=== PATIENT | male | born 2005 | race Caucasian/White ===

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

== ENCOUNTER 2025-03-09 15:27 | Emergency (ER) | payer MEDICAID, SELFPAY ==
[2025-03-09 15:47] VITALS: BP 113/67; PULSE 72; RESP 18; TEMP 36.9; O2SAT 99; BMI 19.9
--- NOTE | 2025-03-09 15:47 | ED_ITS ---
HPI - Dental/Oral General Chief complaint: Dental/Oral Stated complaint: wisdom teeth coming in Time Seen by Provider: 03/09/25 15:52 Source: patient Mode of arrival: ambulatory Limitations: no limitations History of Present Illness ED Provider: Rajwinder Whitehead APRN HPI Narrative: 19 yo male with PMH bicuspid aortic valve here with complaints of dental pain x several weeks. Per mom prior to seeing the dentist the patient needs cardiac clearance before any procedure and she has attempted to call them this week but has not heard back. Having pain and swelling in the mouth. No fevers, chills. Related Data Previous Rx's ?Medication ?Instructions ?Recorded acetaminophen 325 mg tablet 650 mg (2 x 325 mg) PO Q4H PRN 03/09/25 (Tylenol) pain #60 tabs amoxicillin 500 mg capsule 500 mg PO BID #20 caps 02/13 11/06 ibuprofen 400 mg tablet 400 mg PO Q6H PRN pain #30 t abs 03/09/25 Allergies Allergy/AdvReac Type Severity Reaction Status Date / Time No Known Allergies (No Known Allergy Verified 03/09/25 15:49 Allergies*) Review of Systems 2 Review of Systems: Yes all other systems are reviewed and are negative Constitutional: Constitutional: Reports no additional constitutional complaints, Denies body ache(s), Denies chills, Denies fever(s), Denies headache(s) and Denies weakness Eyes: Eyes: Reports no additional eye complaints and Denies change in vision ENT: Reports system reviewed and no additional complaints, except as documented, Reports dental pain, Denies dizziness, Denies headache(s), Denies nasal congestion, Denies nasal discharge and Denies neck pain Cardiovascular: Cardiovascular: Reports no additional cardiovascular complaints, Denies chest pain, Denies leg edema and Denies dyspnea Respiratory: Respiratory: Reports no additional respiratory complaints, Denies cough and Denies dyspnea Gastrointestinal: Gastrointestinal: Reports no additional gastrointestinal complaints, Denies abdominal pain, Denies diarrhea, Denies nausea and Denies vomiting Genitourinary: Genitourinary: Denies urinary incontinence Musculoskeletal: Musculoskeletal: Reports no additional musculoskeletal complaints, Denies back pain, Denies arthralgias, Denies joint swelling, Denies neck pain, Denies numbness and Denies tingling Integumentary/Breasts: Skin/Breast: Reports system reviewed and no additional complaints, except as docu and Denies rash Neurologic: Reports system reviewed and no additional complaints, except as documented, Denies Abnormal speech present, Denies dizziness, Denies headache(s), Denies numbness, Denies tingling and Denies weakness PMFSH Past Medical History Attestation statement: The following information was validated with the patient. Source: old records reviewed and nursing notes reviewed Physical Exam 2 Vital Signs: Vital Signs: Last Vital Signs Temp 98.4 F 03/09/25 15:47 Pulse 72 03/09/25 15:47 Resp 18 03/09/25 15:47 BP 113/67 03/09/25 15:47 Pulse Ox 99 03/09/25 15:47 O2 Del Method Room Air 03/09/25 15:47 BMI result Body Mass Index 19.9 Const: General: cooperative, healthy appearing, comfortable and no acute distress Orientation/consciousness: patient oriented x3 Limitations: no limitations HEENT: Other: no trismus Head: Yes normal to inspection Ears: hearing grossly normal bilaterally General nose exam: Normal external nose present Face and sinus: Yes normal facial exam Mouth: Normal oral and palatal mucosa present Teeth image: 1. partial exposure of wisdom teeth with erythema/swelling 2. partial exposure of wisdom teeth with erythema/swelling Throat: Yes posterior oropharynx normal Eyes: General: appearance normal, both eyes and all related structures P upils: Equal, round and reactive pupils present Neck: Neck: Yes normal visual inspection Chest: Chest palpation & inspection: normal inspection of the chest Resp: Effort & Inspection: normal respiratory effort Auscultation: clear to auscultation bilaterally Cardio: Rate: regular rate Rhythm: regular rhythm Peripheral pulses: P eripheral pulses 2+ throughout GI: Inspection: Yes normal to inspection Palpation (GI): Soft to palpation and nontender Auscultation: normal bowel sounds Back/Spine/Pelvis: Thoracic/Lumbar Spine: thoracic and lumbar spine normal to inspection Skin: General skin exam: no rashes or lesions noted Neuro: General: patient oriented x3, no focal motor deficits and normal sensation to monofilament Cranial nerves: Yes Equal, round and reactive pupils present Cognition (Neuro): normal cognition Speech: No Abnormal speech present Gait exam (Neuro): Normal gait present Motor exam (neuro): 5/5 motor strength present throughout Extrem: General: Yes normal to inspection Medical Decision Making Medical Decision Making MDM Narrative: 19 yo male with PMH bicuspid aortic valve here with complaints of dental pain x several weeks. Per mom prior to seeing the dentist the patient needs cardiac clearance before any procedure and she has attempted to call them this week but has not heard back. Having pain and swelling in the mouth. No fevers, chills. Partially exposed wisdom teeth with local erythema and swelling No trismus Will give Motrin, tylenol and amoxicillin and recommend patient f/u with his outpatient providers and dental Differential Diagnosis Differential Diagnoses: The differential diagnosis associated with the presentation includes Dental infection Low suspicion for dental abscess or Juan's angina Admission/Observation Consideration of admission/observation: Escalation of care including admission/observation considered Prescription Management I considered prescription management with: Antibiotic Discharge Plan Discharge Clinical Impression: Pain, dental Patient Disposition: Home, Self-Care Instructions: Toothache (ED) Additional Instructions: Stop smoking Soft foods Salt water gargles Alternate Motrin or tylenol for gosia Take the antibiotic as prescribed Prescriptions: New amoxicillin 500 mg capsule 500 mg PO BID Qty: 20 0RF acetaminophen [Tylenol] 325 mg tablet 650 mg PO Q4H PRN (Reason: pain) Qty: 60 0RF ibuprofen 400 mg tablet 400 mg PO Q6H PRN (Reason: pain) Qty: 30 0RF Referrals: [facility] [Primary Care Provider, Medical] Print Language: Mongolian
--- OUTSIDE RECORDS SUMMARY | 2025-03-09 15:58 | XMS_ITS | Encounter Summary ---
Author Organization [employer] Address [address] [place] [address] Care Team Providers Care Ticket Collector Name Role Phone Batsheva Mtz MD Primary Care Provider [phone] Encounter Details Date Type Department Care Team (Late st Contact Info) Description 12/15/2023 Orders Only [facility] MEDICINE [address], [place] [phone] Batsheva Mtz MD [address] [place], [place] [phone] Social History Tobacco Use Types Packs/Day Years Used Date Smoking Tobacco: Never Smokeless Tobacco: Never Alcohol Use Standard Drinks/Week Comments Never 0 (1 standard drink = 0.6 oz pur e alcohol) Depression Answer Date Recorded Patient Health Questionnaire-9 Score 3 12/12/2022 Housing Stability Answer Date Recorded What is your housing situation today? I have mar garg 03/20/[address] you li ve. Do you have problems with any of the following? None of the above 03/20/2023 Food Insecurity Answer Date Recorded Within the past 12 months, y ou worried that your food would run out before you got money to buy more: Never True 03/20/2023 Within the past 12 months,th e food you bought just didn't last and you didn't have enough money to get more: Never True 10/2022 Transportation Answer Date Recorded In the past 12 months, has l ack of transportation kept you from medical appts, meetings, work or from getting things needed for daily living? Yes, it has kept me from medical appointments or getting medications. 02/19/2023 Utilities Answer Date Recorded In the past 12 months, has t he electric, gas, oil or water company threatened to shut off services in your home? No 03/20/2023 Depression Answer Date Recorded Patient Health Questionnaire-2 Score 0 12/12/2022 Sex and Gender Information Value Date Recorded Sex Assigned at Male 03/14/2022 10:20 AM EDT Legal Sex Male 10:20 AM EDT Gender Identity Male 11/24/2022 11:10 AM EDT Sexual Orientation Don't know 11/24/2022 11 :10 AM EDT documented as of this encounter Plan of Treatment Not on file documented as of this encounter Visit Diagnoses Not on filedocumented in this encounter Additional Health Concerns Assessment Noted Time PHQ-9 Depression Total Score: 3 12/13/19 23 1:17 PM EDT documented as of this encounter Care Teams Ticket Collector Relationship Specialty Start Date End Date Batsheva Mtz MD [address] [place] [id number] PCP - General Family Medicine 12/12/22 documented as of this encounter
--- OUTSIDE RECORDS SUMMARY | 2025-03-09 15:58 | XMS_ITS | Clinical Summary ---
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 0 Active Humidifier misc humidifier, See Instructions, # 1 units, Refills 0, Tot. Refills 0, Maintenance, use as per package label for congestion, allergies, 10/16/13 16:35:04, Compound 4 Active Melatonin 3 MG tablet dispersible Take 3 mg by mouth. 4 Active doxycycline (Vibra-Tabs) 100 MG tablet Take 100 mg by mouth 2 times daily. 4 Active Active Problems Problem Noted Date Diagnosed Date Ascending aorta dilation 02/16/2024 Cough 02/16/2024 Toenail fungus 12/14/2022 Assessment & Plan (12/14/2022 10:32 AM EDT): Clotrimazole cream BID x 1 month Encounter for well child check without abnormal findings 12/14/2022 Sleep disturbance 06/20/2019 Overview (12/12/2022): Last Assessment & Plan: Takes occasional melatonin 5 mg Acne 03/16/2018 Overview (12/12/2022): Last Assessment & Plan: Will start BP wash and clinda gel Bicuspid aortic valve 08/21/2015 Overview (12/12/2022): Saw Dr. Antony 07/2013 - No signif stenosis or regurgitation; 3 yr f/u recommended. Will send referral now. 2020-trace aortic stenosis, dilated aortic root, fu in [address] Dinh. No restrictions or SBE prophylaxis needed 2021 - [facility]. Dilated aortic root. F/U 1 year. NO contact sports or heavy weight lifting that would require strain or valsalva. Last Assessment & Plan: Will refer to Dr. Antony for appt Assessment & Plan (12/14/2022 10:33 AM EDT): Sees Dr Antony annually, no contact sports or lifting > 30 lbs ADHD (attention deficit hyperactivity disorder) 07/30/2015 Overview (12/12/2022): 07/30/2015 dx in [facility] 2013, trial of Strattera ( ? due to cardiac hx though no clear contraindic), d/c'd fall 2014 and did well but spring 2015 not doing well. Vanderbilts and conference advised 07/2015. 04/25/17 - Doing well in school now w/o meds but mom still would like to restart med due to inattention and overactivity in school. He was aggressive on Strattera in past by hx and lost wt on Concerta. Will check Vanderbilts and hold on med at this time. 10/2017: Four school Vanderbilts positive for combined ADHD. NO comorbidities. -- Performance uniformly average for academics, problematic for assignement completion, disrupting class, following directions. -- Multiple comments that he is smart but can't stay in his seat and talks excessively. Mom states that hyperactivity is more at school and less at home. --Trial of Focalin XR 10 mg. Will be away for summer, start [employer] [place] in fall. -- Cardiac: Saw Dr Antony in April. Notes reviewe re bicuspid aortic valve. No contraindication to stimulants and has taken them in past. 04/17/18: Finally restarted the Focalin XR 10 mg (which he had taken x 1m in summer when w/dad in [place], no report about it) and on day 4 he felt weird, acted out, was scared, like a panic attack, was after eating lunch. Will do trial of 5 mg dose. Also consider guanfacine, consider MCPAP eval. Having trouble getting support at school, suggested [facility]. Last Assessment & Plan: No meds at this time. Mom stopped the Focalin after 6 mos since it was not helping. Not doing well in school. Had side effects on Focalin in past. Will hold on renewing any meds, some change in device use, recheck 1 month. Immunizations Immunization Administration Dates Next Due DTaP 07/20/2010, 8,06/25/2007,01/11,2005,2005 DTaP / Hep B / IPV 01/11/2006,2005, 006 HPV 9-Valent 06/20/2019,04/25/2017 Hep A, ped/adol, 2 dose 08/21/2020,06/20/2019 Hep B, Adolescent or Pediatric 6,2005,2005,07/03 Hib (HbOC) 10/18/2007, 8,01/11/2006,01/11,2005,2005 Hib (PRP-T) 10/18/2007, 8,01/11/2006,11/16,2005 IPV 07/20/2010, 0,01/11/2006,11/16,2005 Influenza injectable quadriv alent preservative free 08/21/2020,03/15/2018,04/25/2017 Influenza live intranasal qu adrivalent LIAV4 08/10/2015 Influenza, IIV3, injectable 02/05/2014,0 01/16/2013,05/13/2009,05/01,04/03/2006 Influenza, Unspecified 02/05/2014,01/16/2013, MMR 07/20/2010,07/25/2006 MMRV 07/25/2006 Meningococcal MCV4P [id number]-135 12/12/2022,04/25/20 17 Meningococcal Polysaccharide A,C,Y,W-135 TT Conjugate 12/12/2022 Pneumococcal Conjugate PCV 7 07/25/2006, 01/11/2006,2005,09/05 Tdap 08/10/2015 Varicella 07/20/2010,07/25/2006 Social History Tobacco Use Types Packs/Day Years Used Date Smoking Tobacco: Never Smokeless Tobacco: Never Tobacco Cessation:Counseling Given: Not Answered Alcohol Use Standard Drinks/Week Comments Never 0 (1 standard drink = 0.6 oz pur e alcohol) Depression Answer Date Recorded Patient Health Questionnaire-9 Score 3 12/12/2022 Housing Stability Answer Date Recorded What is your housing situation today? I have marlaney garg 03/20/[address] you [...] Don't know 11/24/2022 11 :10 AM EDT Last Filed Vital Signs Vital Sign Reading Time Taken Comments Blood Pressure 123/73 12/12/2022 1:14 PM EDT Pulse 62 12/12/2022 1:14 PM EDT Temperature 36.6 C (97.9 F) 12/12/2022 1:14 PM EDT Respiratory Rate 20 12/12/2022 1:14 PM EDT Oxygen Saturation 99% 12/12/2022 1:14 PM EDT Inhaled Oxygen Concentration - - Weight 47.9 kg (105 lb 8 oz) 12/12/2022 1:14 PM EDT Height 152.4 cm (5') 12/12/2022 1:14 PM EDT Body Mass Index 20.6 12/12/2022 1:14 PM EDT Body Mass Index Percentile 36.69% 12/12/2022 1:1 4 PM EDT Growth Chart: CDC (Boys, 2-2 0 Years) Plan of Treatment Health Maintenance Due Date Last Done Comments Chlamydia and Gonorrhea Screening 2005 HIV Screening 2005 Disability Screening 2005 Fluoride Varnish 08/18/2016 02/18/2016 Alcohol/Substance Use Screening 2017 Family Planning (PISQ) 2020 Meningococcal B Vaccine (1 of 2 - Standard) 2021 Hepatitis C Screening 2023 Depression Screening 12/13/2023 12/12/2022, 12/13/19 23 SDOH Screening 12/13/2023 12/12/2022 Tobacco Screening 12/13/2023 12/12/2022 Pneumococcal Vaccine: Pediatrics (0 to 5 Years) and At-Risk Patients (6 to 49) Years (1 of 2 - PCV) 2024 07/25/2006, 01/11/2006, 2005, Additional history exists COVID-19 Vaccine (1 - season) 2025 Influenza Vaccine (#1) 2025 , 03/15/2018, 04/25/2017, Additional history exists DTaP/Tdap/Td Vaccines (7 - Td or Tdap) 08/09/2025 08/10/2015, 07/20/2010, 10/18/2007, Additional history exists Zoster Vaccines (1 of 2) 2055 RSV Patients and Patients Aged 60 years or older (1 - 1-dose 75+ series) 2080 Hepatitis B Vaccines Completed 01/11/2006, 01/11/2006, 2005, Additional history exists HIB Vaccines Completed 10/18/2007, 09/2007, 06/25/2007, Additional history exists IPV Vaccines Completed 07/20/2010, 12/15, 01/11/2006, Additional history exists MMR Vaccines Completed 07/20/2010, 07/13, 07/25/2006 Varicella Vaccines Completed 07/20/2010, 0 07/25/2006, 07/25/2006 HPV Vaccines Completed 06/20/2019, 04/25/2017 Hepatitis A Vaccines Completed 08/21/2020, 06/20/19 20 Meningococcal Vaccine Completed 12/12/2022 , 12/12/2022, 04/25/2017 RSV under 20 months Aged Out No longe r eligible based on patient's age to complete this topic Rotavirus Vaccines Aged Out No longer eligible based on patient's age to complete this topic Procedures Procedure Name Priority Date/Time Associated Diagnosis Comments TOPICAL APPLICATION OF FLUORIDE VARNISH Routine 02/18/2016 12:00 AM EDT from Last 3 Months or Most Recently Relevant to Health Maintenance Insurance [facility] C3 Care Teams Paper Roll Machine Operator Relationship Specialty Start Date End Date Batsheva Mtz MD [address] [place] [id number] PCP - General Family Medicine 12/12/22
[2025-03-09 16:04] VITALS: BP 113/67; PULSE 72; RESP 18; TEMP 36.9; O2SAT 99
== END 2025-03-09 16:05 | disposition home or self-care (01) ==
PROVIDERS: Emergency Provider Emergency Medicine Emergency Medical Services
DX: K08.89 Other specified disorders of teeth and supporting structures (principal)
CPT/HCPCS: 99282; 99283